=== PATIENT | male | born 1980 | race Caucasian/White ===

== ENCOUNTER 2021-05-24 13:58 | Outpatient (CLI) | payer MEDICARE, SELFPAY ==
[2021-05-24 15:41] LABS: SARS-CoV-2 RNA PCR Negative (Negative)
== END 2021-05-24 13:59 | disposition home or self-care (01) ==
PROVIDERS: PCP Internal Medicine; Visit Provider Internal Medicine
DX: J06.9 Acute upper respiratory infection, unspecified (principal); R05 Cough; Z20.822 Contact with and (suspected) exposure to COVID-19
CPT/HCPCS: C9803; U0003; U0005

== ENCOUNTER 2022-05-23 10:42 | Outpatient (CLI) | payer MEDICARE, SELFPAY ==
[2022-05-23 10:54] LABS: Add Urine Microscopic? YES; Appearance Urine Clear (Clear); Bilirubin Urine Negative (Negative); Blood Urine Negative (Negative); Color Urine Light Yellow (Yellow); Glucose Urine UA Negative (Negative); Ketones Urine Negative (Negative); Leukocyte Esterase Ur 2+ (Negative); Nitrate Urine Positive (Negative); Protein Urine Negative (Negative); Specific Grav Ur 1.015 (1.010-1.020); Urobilinogen Urine 0.2 mg/dL (0.2-1.0)
[2022-05-23 10:59] LABS: RBC Urine None seen /hpf (0-2)
[2022-05-23 11:00] LABS: Bacteria Urine 3+ /hpf
== END 2022-05-23 10:43 | disposition home or self-care (01) ==
LOC: CHSLAB 10:45
PROVIDERS: PCP Internal Medicine; Visit Provider Internal Medicine
DX: N39.0 Urinary tract infection, site not specified (principal)
CPT/HCPCS: 81001; 87077; 87086; 87088; 87186

== ENCOUNTER 2022-08-23 15:21 | Outpatient (CLI) | payer MEDICARE, SELFPAY ==
[2022-08-23 15:38] LABS: Basophils Absolute Auto 0.04 K/mm3 (0.00-0.10); Basophils Percent Auto 0.7 % (0.0-1.0); Eosinophils Absolute Auto 0.09 K/mm3 (0.02-0.50); Eosinophils Percent Auto 1.5 % (1.0-6.0); Hematocrit 44.1 % (40.0-54.0); Hemoglobin 15.2 g/dL (14.0-18.0); Immature Granulocyte Absolute 0.02 K/mm3 (0.00-0.00); Immature Granulocyte Percent A 0.3 % (0.0-0.0); Lymphocytes Absolute Auto 2.43 K/mm3 (1.10-4.50); Lymphocytes Percent Auto 39.7 % (18.0-42.0); Mean Corpuscular HGB Conc 34.5 g/dL (32.0-36.0); Mean Corpuscular Hemoglobin 30.2 pg (27.0-31.0); Mean Corpuscular Volume 87.5 fL (78.0-102.0); Mean Platelet Volume 9.5 fl (8.7-11.0); Monocytes Absolute Auto 0.53 K/mm3 (0.10-0.90); Monocytes Percent Auto 8.7 % (2.0-11.0); Neutrophils Percent Auto 49.1 % (50.0-70.0); Platelet Count Result 285 K/mm3 (150-420); Red Blood Count 5.04 M/mm3 (4.70-6.10); Red Cell Distribution Width 13.5 % (11.6-14.4); White Blood Count 6.1 K/mm3 (4.8-10.8)
[2022-08-23 15:46] LABS: Creatinine Urine 188.04 mg/dL (40-278); MALB Creatinine Ratio 6.9 mg/g (0-30); Microalbumin Urine Random < 13.0 mg/L
[2022-08-23 16:04] LABS: Alanine Aminotransferase 110 U/L (16-63); Albumin Level 4.6 g/dL (3.4-5.0); Alkaline Phosphatase 89 U/L (46-116); Anion Gap 8 mmol/L (8-16); Aspartate Amino Transferase 56 U/L (15-37); Blood Urea Nitrogen 12 mg/dL (7-18); Calcium 8.5 mg/dL (8.5-10.1); Carbon Dioxide 27 mmol/L (21-32); Chloride 103 mmol/L (98-108); Cholesterol 175 mg/dL (0-200); Estimated Glomerular Filt Rate > 60; Glucose 91 mg/dL (70-99); HDL Direct 32 mg/dL (40-60); LDL Cholesterol Calculated 114 mg/dL (<130); Osmolality Calculated 285 mOsm/kg (285-295); Potassium 3.6 mmol/L (3.5-5.1); Sodium 138 mmol/L (136-145); Thyroid Stimulating Hormone 3.73 uIU/mL (0.36-3.74); Total Protein 8.4 g/dL (6.4-8.2); Triglycerides 144 mg/dL (0-150)
== END 2022-08-23 15:22 | disposition home or self-care (01) ==
LOC: CHSLAB 15:23
PROVIDERS: PCP Internal Medicine; Visit Provider Internal Medicine
DX: E11.9 Type 2 diabetes mellitus without complications (principal); I10 Essential (primary) hypertension
CPT/HCPCS: 36415; 80053; 80061; 82043; 83036; 84443; 85025

== ENCOUNTER 2022-10-18 09:10 | Outpatient (CLI) | payer MEDICARE, MEDICAID, SELFPAY ==
--- NOTE | ~2022-10-18 | XR_ITS ---
Clinical Indication: Chest pain PA and lateral views of the chest: Comparison: 05/20/2018 Findings: The lungs are clear, without evidence of focal consolidation or pleural effusion. Cardiome diastinal silhouette is within normal limits. Bones and soft tissues are unremarkable. Impression: Normal chest. Reviewed, dictated and finalized at location . 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
[2022-10-18 09:22] LABS: Basophils Absolute Auto 0.05 K/mm3 (0.00-0.10); Basophils Percent Auto 0.9 % (0.0-1.0); Eosinophils Absolute Auto 0.05 K/mm3 (0.02-0.50); Eosinophils Percent Auto 0.9 % (1.0-6.0); Hematocrit 46.4 % (40.0-54.0); Hemoglobin 16.3 g/dL (14.0-18.0); Immature Granulocyte Absolute 0.01 K/mm3 (0.00-0.00); Immature Granulocyte Percent A 0.2 % (0.0-0.0); Lymphocytes Absolute Auto 1.56 K/mm3 (1.10-4.50); Lymphocytes Percent Auto 27.8 % (18.0-42.0); Mean Corpuscular HGB Conc 35.1 g/dL (32.0-36.0); Mean Corpuscular Hemoglobin 30.6 pg (27.0-31.0); Mean Corpuscular Volume 87.1 fL (78.0-102.0); Mean Platelet Volume 9.7 fl (8.7-11.0); Monocytes Absolute Auto 0.35 K/mm3 (0.10-0.90); Monocytes Percent Auto 6.2 % (2.0-11.0); Neutrophils Absolute Auto 3.6 K/mm3 (1.7-7.2); Platelet Count Result 282 K/mm3 (150-420); Red Blood Count 5.33 M/mm3 (4.70-6.10); Red Cell Distribution Width 13.2 % (11.6-14.4); White Blood Count 5.6 K/mm3 (4.8-10.8)
[2022-10-18 09:36] LABS: D Dimer 0.19 mg/L (0.19-0.50)
[2022-10-18 09:57] LABS: Alanine Aminotransferase 115 U/L (16-63); Albumin Level 4.8 g/dL (3.4-5.0); Alkaline Phosphatase 91 U/L (46-116); Anion Gap 11 mmol/L (8-16); Aspartate Amino Transferase 43 U/L (15-37); Bilirubin,Total 1.6 mg/dL (0.00-1.00); Blood Urea Nitrogen 15 mg/dL (7-18); Calcium 8.6 mg/dL (8.5-10.1); Carbon Dioxide 27 mmol/L (21-32); Chloride 101 mmol/L (98-108); Creatine Kinase 143 U/L (39-308); Estimated Glomerular Filt Rate > 60; Glucose 188 mg/dL (70-99); NT Pro B Type Natriuretic Pept 26 pg/mL (0-125); Osmolality Calculated 293 mOsm/kg (285-295); Potassium 3.7 mmol/L (3.5-5.1); Sodium 139 mmol/L (136-145); Total Protein 8.7 g/dL (6.4-8.2)
[2022-10-18 10:01] LABS: Troponin I < 4.0 ng/L (0.00-60.4)
== END 2022-10-18 09:11 | disposition home or self-care (01) ==
LOC: CHSLAB 09:13
PROVIDERS: PCP Internal Medicine; Visit Provider Internal Medicine
DX: R07.9 Chest pain, unspecified (principal); R06.02 Shortness of breath
CPT/HCPCS: 36415; 71046; 80053; 82550; 82553; 83880; 84484; 85025; 85380

== ENCOUNTER 2022-10-25 08:37 | Outpatient (CLI) | payer MEDICARE, MEDICAID, SELFPAY ==
--- NOTE | ~2022-10-25 | US_ITS ---
Limited Abdominal Sonogram: Real-time sonographic imaging of the right upper quadrant was performed. Clinical History: Right upper quadrant pain Findings: The liver appears mildly echogenic, with no evidence of mass lesion or bile duct dilatatio n. Main portal vein demonstrates normal direction of flow. The gallbladder is well distended, and medardo ears normal with no evidence of gallstone or wall thickening. The common bile duct measures 4 mm. Th e visualized pancreas, aorta, and IVC are unremarkable. Impression: Diffuse fatty infiltration of liver. 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
== END 2022-10-25 08:38 | disposition home or self-care (01) ==
LOC: CHSIMG 08:39
PROVIDERS: PCP Internal Medicine; Visit Provider Internal Medicine
DX: R10.11 Right upper quadrant pain (principal); K76.0 Fatty (change of) liver, not elsewhere classified
CPT/HCPCS: 76705

== ENCOUNTER 2022-11-28 15:18 | Outpatient (CLI) | payer MEDICARE, MEDICAID, SELFPAY ==
[2022-11-28 15:38] LABS: Basophils Absolute Auto 0.08 K/mm3 (0.00-0.10); Basophils Percent Auto 1.3 % (0.0-1.0); Eosinophils Absolute Auto 0.08 K/mm3 (0.02-0.50); Eosinophils Percent Auto 1.3 % (1.0-6.0); Hematocrit 47.1 % (40.0-54.0); Hemoglobin 14.6 g/dL (14.0-18.0); Immature Granulocyte Absolute 0.06 K/mm3 (0.00-0.00); Lymphocytes Absolute Auto 2.38 K/mm3 (1.10-4.50); Mean Corpuscular Hemoglobin 30.2 pg (27.0-31.0); Mean Corpuscular Volume 97.5 fL (78.0-102.0); Mean Platelet Volume 9.8 fl (8.7-11.0); Monocytes Absolute Auto 0.63 K/mm3 (0.10-0.90); Monocytes Percent Auto 10.3 % (2.0-11.0); Neutrophils Absolute Auto 2.9 K/mm3 (1.7-7.2); Neutrophils Percent Auto 47.1 % (50.0-70.0); Platelet Count Result 346 K/mm3 (150-420); Red Blood Count 4.83 M/mm3 (4.70-6.10); Red Cell Distribution Width 13.4 % (11.6-14.4); White Blood Count 6.1 K/mm3 (4.8-10.8)
[2022-11-28 15:51] LABS: Hemoglobin A1C 5.2 % (<5.7)
[2022-11-28 16:09] LABS: Alanine Aminotransferase 63 U/L (16-63); Albumin Level 4.3 g/dL (3.4-5.0); Alkaline Phosphatase 84 U/L (46-116); Anion Gap 9 mmol/L (8-16); Aspartate Amino Transferase 28 U/L (15-37); Bilirubin,Total 0.9 mg/dL (0.00-1.00); Blood Urea Nitrogen 10 mg/dL (7-18); Calcium 8.1 mg/dL (8.5-10.1); Carbon Dioxide 28 mmol/L (21-32); Chloride 104 mmol/L (98-108); Cholesterol 192 mg/dL (0-200); Estimated Glomerular Filt Rate > 60; Glucose 91 mg/dL (70-99); HDL Direct 30 mg/dL (40-60); LDL Cholesterol Calculated 140 mg/dL (<130); Osmolality Calculated 291 mOsm/kg (285-295); Potassium 3.7 mmol/L (3.5-5.1); Sodium 141 mmol/L (136-145); Total Protein 7.5 g/dL (6.4-8.2); Triglycerides 111 mg/dL (0-150)
== END 2022-11-28 15:19 | disposition home or self-care (01) ==
LOC: CHSLAB 15:21
PROVIDERS: PCP Internal Medicine; Visit Provider Internal Medicine
DX: I10 Essential (primary) hypertension (principal); E78.5 Hyperlipidemia, unspecified; E11.9 Type 2 diabetes mellitus without complications
CPT/HCPCS: 36415; 80053; 80061; 83036; 85025

== ENCOUNTER 2022-11-29 16:17 | Outpatient (CLI) | payer MEDICARE, MEDICAID, SELFPAY ==
[2022-11-29 17:14] LABS: Calcium 8.2 mg/dL (8.5-10.1); Phosphorus 3.6 mg/dL (2.6-4.7)
[2022-12-03 15:51] LABS: Ionized Calcium 4.8 mg/dL (4.8-5.6)
[2022-12-03 19:47] LABS: Parathyroid Intact 68 pg/mL (14-64)
[2022-12-03 23:41] LABS: Vitamin D 1,25 (OH)2 Total 41 pg/mL (18-72); Vitamin D2 1,25 (OH)2 <8 pg/mL; Vitamin D3 1,25 (OH)2 41 pg/mL
== END 2022-11-29 16:18 | disposition home or self-care (01) ==
LOC: CHSLAB 16:19
PROVIDERS: PCP Internal Medicine; Visit Provider Internal Medicine
DX: E58 Dietary calcium deficiency (principal); E55.9 Vitamin D deficiency, unspecified
CPT/HCPCS: 36415; 82306; 82310; 82330; 82652; 83970; 84100

== ENCOUNTER 2022-12-10 08:33 | Outpatient (CLI) | payer MEDICARE, MEDICAID, SELFPAY ==
--- NOTE | 2022-12-10 10:35 | EST_ITS ---
Patient Info Name: Quentin Harry Age: 42 years : 1980 Gender: Male Ht: 73 in Wt: 265 lbs BSA: 2.53 m2 HR: 79 bpm BP: 137 / 81 mmHg Heart Rhythm: Sinus Rhythm Technical Quality: Excellent Exam Date: 12/10/2022 10:34 AM Exam Location: [facility] Patient Status: Outpatient Admit Date: 12/10/2022 Staff Ordering Physician: Oumar Rendon MD Attending Provider: Oumar Rendon MD Exercise Technologist: Desi Arora, PRAMOD Exercise Physician: Abigail Grider CEP Exam Type: CA stress german w NM Study Info Indications ChestPain - A nuclear stress test was performed. History/Risk Factors Hypertension: Yes Obesity: Yes Diabetes Mellitus: Yes History/Risk Factors Chest Pain, Diabetes, Hypertension, Obesity. Summary 1. 1. Negative lexiscan stress test for ischemic ST changes by ECG criteria. 2. 2. Stable hemodynamics throughout the test. 3. 3. Nuclear scan to follow and will be reported separately. Please correlate with it. Protocol: LEXISCAN Stress ECG Details Stage: REST Duration (min): 2 min : 4 sec HR (bpm): 82 SBP (mmHg): 137 DBP (mmHg): 81 Stage: REST Duration (min): 2 min : 17 sec HR (bpm): 78 SBP (mmHg): 137 DBP (mmHg): 81 Stage: REST Duration (min): 7 min : 18 sec HR (bpm): 78 SBP (mmHg): 137 DBP (mmHg): 81 Stage: STAGE 1 Duration (min): 0 min : 14 sec HR (bpm): 73 SBP (mmHg): 137 DBP (mmHg): 81 Stage: RECOVERY Duration (min): 0 min : 45 sec HR (bpm): 104 SBP (mmHg): 137 DBP (mmHg): 81 Stage: RECOVERY Duration (min): 1 min : 45 sec HR (bpm): 116 SBP (mmHg): 137 DBP (mmHg): 81 Stage: RECOVERY Duration (min): 2 min : 45 sec HR (bpm): 111 SBP (mmHg): 129 DBP (mmHg): 80 Stage: RECOVERY Duration (min): 3 min : 45 sec HR (bpm): 111 SBP (mmHg): 135 DBP (mmHg): 83 Stage: RECOVERY Duration (min): 4 min : 45 sec HR (bpm): 106 SBP (mmHg): 137 DBP (mmHg): 85 Stage: RECOVERY Duration (min): 5 min : 45 sec HR (bpm): 109 SBP (mmHg): 137 DBP (mmHg): 85 Stage: RECOVERY Duration (min): 6 min : 17 sec HR (bpm): 106 SBP (mmHg): 137 DBP (mmHg): 85 Rest HR: 78 bpm Peak HR: 120 bpm Rest Sys BP: 137 mmHg Peak Sys BP: 137 mmHg Max Pred HR: 176 bpm % Max Pred HR: 68 % Target HR: 150 bpm Max RPP: 16,440 bpm*mmHg Termination Reason: Completed Protocol Cardiac Symptoms: Flushing, Dyspnea Total Time: 0 min : 14 sec Rest Holguin BP: 81 mmHg Peak Holguin BP: 85 mmHg Total Dose: 0.4 mg Resting ECG Sinus rhythm, delayed precordial R/S transition, consider inferior infarct, age indeterminate. Stress ECG None. Arrhythmias No arrhythmias were observed during the examination. Report Signatures
--- NOTE | 2022-12-10 13:23 | WPDCARIOSTRE ---
Nuclear Stress Test INDICATIONS Indications: Chest pain PROCEDURE Procedure Performed: Myocardial Perf Spect-Multi Procedure: Patient underwent a lexiscan stress test and immediately was injected with 32.4 mCi of cardiolyte. Multiple tomographic images were obtained. These are of good quality. There is no evidence of perfusion defects during stress imaging. A separate resting images were obtained after patient was injected with 10.5 mCi of cardiolyte. Multiple tomographic images were obtained. These are of good quality. There is a moderate size, moderate severity perfusion defect during rest imaging. CONCLUSION Conclusion: 1. Normal myocardial perfusion imaging demonstrating no perfusion defect during stress imaging. 2. No reversible ischemia. 3. Left ventriculogram demonstrates normal measured ejection fraction of 79%. No wall motion abnormalities. 4. TID score 0.94 is normal.
== END 2022-12-10 08:34 | disposition home or self-care (01) ==
LOC: CHSIMG 08:34
PROVIDERS: PCP Internal Medicine; Visit Provider Internal Medicine
DX: R07.89 Other chest pain (principal); R10.13 Epigastric pain
CPT/HCPCS: 78452; 93017; A9502; J2785

== ENCOUNTER 2022-12-18 08:24 | Outpatient (CLI) | payer MEDICARE, MEDICAID, SELFPAY ==
--- NOTE | ~2022-12-18 | XR_ITS ---
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 Fluoroscop ic images of the esophagus were obtained in various projections. The hypopharynx was also examined. T hereafter, overhead images of the thoracic esophagrus were performed. Fluroscopy time 0.7 minutes. 42 images. FINDINGS: The esophagus is normal in caliber, without mucosal lesions or strictures. There is normal esophageal peristalsis. There is no hiatal hernia. No discreet episode of gastroesophageal reflux i s seen during the course of this study. IMPRESSION: 1. Normal barium esophagram. Reviewed, dictated and finalized at location L. 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
== END 2022-12-18 08:25 | disposition home or self-care (01) ==
LOC: CHSIMG 08:27
PROVIDERS: PCP Internal Medicine; Visit Provider Internal Medicine
DX: R07.89 Other chest pain (principal); R10.13 Epigastric pain
CPT/HCPCS: 74220

== ENCOUNTER 2025-05-24 09:43 | Outpatient (CLI) | payer MEDICARE, MEDICAID, SELFPAY ==
[2025-05-24 10:06] LABS: Add Urine Microscopic? YES; Appearance Urine Clear (Clear); Glucose Urine UA 3+ (Negative); Hematocrit 45.5 % (40.0-54.0); Hemoglobin 15.6 g/dL (14.0-18.0); Leukocyte Esterase Ur Negative (Negative); Mean Corpuscular HGB Conc 34.3 g/dL (32-36); Mean Corpuscular Hemoglobin 29.4 pg (27.0-31.0); Mean Corpuscular Volume 85.8 fL (78.0-102.0); Nitrate Urine Negative (Negative); Platelet Count Result 298 K/mm3 (150-420); Red Blood Count 5.30 M/mm3 (4.70-6.10); Specific Grav Ur 1.025 (1.010-1.020); White Blood Count 5.2 K/mm3 (4.8-10.8)
[2025-05-24 10:20] LABS: MALB Creatinine Ratio 6.9 mg/g (0-30)
[2025-05-24 10:22] LABS: Hemoglobin A1C 8.4 % (<5.7)
[2025-05-24 11:12] LABS: Thyroid Stimulating Hormone 2.520 uIU/mL (0.465-4.680)
[2025-05-24 12:12] LABS: Alanine Aminotransferase 71 U/L (6-50); Albumin Level 4.7 g/dL (3.5-5.1); Alkaline Phosphatase 106 U/L (38-126); Anion Gap 9 mmol/L (4-12); Aspartate Amino Transferase 57 U/L (17-59); Bilirubin,Total 1.5 mg/dL (0.2-1.3); Blood Urea Nitrogen 16 mg/dL (9-20); Calcium 8.3 mg/dL (8.4-10.2); Carbon Dioxide 24 mmol/L (22-30); Chloride 107 mmol/L (98-107); Cholesterol 280 mg/dL (0-200); Estimated Glomerular Filt Rate > 60; Glucose 191 mg/dL (65-110); HDL Direct 29 mg/dL; Osmolality Calculated 296 mOsm/kg (285-295); Potassium 4.5 mmol/L (3.4-5.0); Sodium 140 mmol/L (137-145); Total Protein 7.8 g/dL (6.3-8.2); Triglycerides 245 mg/dL (<150)
== END 2025-05-24 09:44 | disposition home or self-care (01) ==
LOC: CHSLAB 09:45
PROVIDERS: PCP Internal Medicine; Visit Provider Internal Medicine
DX: E11.9 Type 2 diabetes mellitus without complications (principal); R21 Rash and other nonspecific skin eruption
CPT/HCPCS: 36415; 80053; 80061; 81001; 82043; 83036; 84443; 85027